=== PATIENT | female | born 1990 | race Caucasian/White ===

== ENCOUNTER 2023-09-29 21:08 | Inpatient (IN) | payer BC, SELFPAY ==
[2023-09-29 17:13] VITALS: BP 145/102
--- NOTE | 2023-09-29 17:57 | ED.GENMED ---
History of Present Illness
General
Chief Complaint: Facial Problem
Source: patient
Exam Limitations: none
Time Seen by Provider: 09/29/23 17:39
Travel History
Have you had any contact with someone who has COVID-19?: No
Do you have any symptoms of coronavirus? Fever > 100 degrees, chills, cough, shortness of breath, sore throat, loss of taste or smell, muscle aches, or headache?: Yes
Symptoms:: fever
History of Present Illness
History of Present Illness:
See MDM
Past History
Past History
ED Past Medical History: None
ED Past Surgical History: None
Social History
Tobacco: Non-smoker
Alcohol: None
Phy Exam
Physical Exam
Physical Exam:
See MDM
Course
Orders/Labs/Results
Orders:
Orders
09/29/23 17:54
CT Neck With Iv Contrast Urgent
Comment:
Reason For Exam: fever, R lateral/anterior neck pain and swelling
0.9% Sodium Chloride 1000 ml [Nss] 1,000 ml IV BOLUS
Acetaminophen [Tylenol] 1,000 mg PO NOW STA
Ketorolac [Toradol] 30 mg IV NOW STA
Morphine Sulfate 4 mg IV NOW STA
09/29/23 18:18
Complete Blood Count/With Diff Urgent
Comprehensive Metabolic Panel Urgent
HCG, Serum Qualitative Screen Urgent
Comment: ADD ON
09/29/23 18:38
Add On- LAB Urgent
Tests Added?: hcg qualitative
09/29/23 20:21
Piperacillin/Tazo 3.375 Gram [Zosyn] 3.375 gram in 50 ml IV NOW
09/29/23 20:30
Blood Culture Q30M
KAROLINE Source: Blood/Venous
Specimen Description:
09/29/23 21:00
Blood Culture Q30M
KAROLINE Source: Blood/Venous
Specimen Description:
Abnormal Lab Results
09/29/23
18:18
Absolute Lymphs (auto) 1.0 L 10^3/uL
(1.2-3.4)
Neutrophils % 78.1 H %
(42.2-75.2)
Lymphocytes % 12.7 L %
(20.5-51.1)
Sodium 134 L mmol/L
(135-145)
09/29/23 18:18
09/29/23 18:18
Vital Signs
Initial and Last Documented VS:
Initial Vital Signs
Temp Pulse Resp BP Pulse Ox
102.1 F H 120 18 145/102 100
09/29/23 17:13 09/29/23 17:13 09/29/23 17:13 09/29/23 17:13 09/29/23 17:13
Last Documented Vital Signs
Temp Pulse Resp BP Pulse Ox
102.7 F H 104 20 145/102 100
09/29/23 18:30 09/29/23 18:30 09/29/23 18:30 09/29/23 17:13 09/29/23 18:30
MDM/Problems Addressed
Differential Diagnosis Includes:
HPI and MDM Narrative:
32-year-old female presenting with persistent fevers and now with right neck pain. She has been on and off antibiotics for sinus infections. She was on a Z-Bob and then amoxicillin x 2 and now she is currently on Bactrim. She spoke to PCP and she
has a lump in her neck and she developed a fever. She was sent in for evaluation
Physical exam
General: Well appearing and non-toxic
HEENT: protecting airway. Right TM erythematous
Neck: Swelling and tenderness to right anterior neck
CV: No evidence of cyanosis
Resp: No accessory muscle use
Abd: Non-distended
Extremities: No deformities
Neuro: alert
Psych: Normal affect
Skin: warm
Problems Addressed including Acute and Chronic Conditions affecting care:
1. Fever and right neck pain
Acuity: acute
Prognosis: stable
Details: Will obtain CT looking for deep space infection
Updates
Case discussed with radiology. No ring-enhancing lesion noted
Differential Diagnosis (but not limited to): Lymphadenitis, otitis media, neck abscess
Testing considered: Blood cultures
Drug therapy (if applicable): OTC meds, please see d/c instruction regarding Rx drugs
Amount and/or Complexity of Data Reviewed
Clinical info obtained from: Patient
External data reviewed: N/A
Labs I independently reviewed (but not limited to): Blood cell count
Radiology: The CT scan was personally and independently reviewed. In addition, official CT report reviewed.
Pulse Ox: not hypoxic
EKG independently reviewed: N/A
Production Machine Shop Supervisor: N/A
Critical Care: N/A
Risk of Complication:
Social Determinants of health: Good social support
Discussed with other providers: Hospitalist, radiologist
Escalation of Care includes Admit/Obs: Given the persistent symptoms and fevers, will admit
Occasional wrong word or 'sound a like' substitutions may have occurred due to the inherent limitations of voice recognition software. Read the chart carefully and recognize, using context, where substitutions have occurred.
*Critical Care Note
Total Time (30-74mins, 75-104mins- exclusive of procedures): Not Applicable
ED Attending Note
-
Portions of this chart may have been created with voice recognition software.� Occasional wrong word or��sound alike� substitutions may have occurred due to the inherent limitations of voice recognition software.
Discharge Plan
Departure
Patient Disposition: Admit
Date of Disposition: 09/29/23
Time of Disposition: 20:27
Admit to: Med/Surg
Presentation/result/management discussed w/ accepting MD/DO: Hospitalist
Discharge Problem:
Acute lymphadenitis
Prescriptions:
No Action
sulfamethoxazole-trimethoprim 800-160 mg Tablet
1 tab PO BID
Patient Comments:
09/29/2023, filled on 09/22/2023 and instructed to take one tablet BID for 10 days.
Advil Allergy Sinus 2-30-200 mg Tablet
1 tab PO DAILYPRN PRN (Reason: allergies)
melatonin 10 mg Tablet
15 mg PO HS PRN (Reason: sleep)
Referrals:
Selene Sheppard MD [Family Provider] -
Interventions
Interventions:
*Risk Screen - Suicide Last Done: 09/29/23 17:13
*General Assessment Last Done: 09/29/23 17:13
*Neglect/Abuse Screening Last Done: 09/29/23 17:13
*ED COVID-19 Vaccine History Last Done: 09/29/23 18:13
ED- Neurological Assessment Last Done: 09/29/23 18:13
ED-Skin Assessment Last Done: 09/29/23 18:13
Discharge Date and Time
Print Language: LUXEMBOURGER
[2023-09-29 18:13] VITALS: BMI 22.7
[2023-09-29] MEDS: TORADOL 30 MG IV (18:24)
[2023-09-29] MEDS: NSS 1000 IV ×2 (18:24→22:12)
[2023-09-29] MEDS: TYLENOL 1000 MG PO (18:24)
[2023-09-29 18:25] LABS: % Basophils 0.4 % (0-2); % Eosinophils 0.5 % (0-6); % Immature Granulocytes 0.1 % (0-0.5); % Lymphocytes 12.7 % (20.5-51.1); % Monocytes 8.2 % (1.7-9.3); % Neutrophils 78.1 % (42.2-75.2); Absolute Monocytes 0.6 10^3/uL (0.1-0.6); Absolute Neutrophils 5.9 10^3/uL (1.4-6.5); Hematocrit 40.1 % (37.0-47.0); Hemoglobin 14.5 g/dL (12.0-16.0); Mean Corp Hgb Conc. 36.2 g/dL (33.0-37.0); Mean Platelet Volume 9.2 fL (7.4-10.4); Nucleated Red Blood Cells % 0 %; Platelet Count 197 10^3/uL (130-400); Red Blood Cell Count 4.83 10^6/uL (4.20-5.40); Red Cell Dist. Width 12.2 % (11.5-14.5); White Blood Cell Count 7.6 10^3/uL (4.8-10.8)
[2023-09-29] MEDS: MORPHINE SULFATE 4 MG IV (18:25)
[2023-09-29 18:44] LABS: ALT (SGPT) 14 U/L (0-35); AST (SGOT) 21 U/L (14-36); Albumin 4.3 g/dl (3.5-5.0); Alkaline Phosphatase 57 U/L (38-126); Blood Urea Nitrogen 10 mg/dl (7-17); Carbon Dioxide 23 mmol/L (22-30); Chloride 102 mmol/L (98-107); Estimated Creatinine Clearance 103 ml/min; Glucose 88 mg/dl (70-99); Sodium 134 mmol/L (135-145); Total Bilirubin 0.6 mg/dl (0.2-1.3); Total Protein 7.6 g/dl (6.3-8.2); eGFR > 60.00
[2023-09-29 19:04] LABS: HCG, Serum Qualitative Screen Negative
[2023-09-29 20:31] VITALS: BP 101/61
[2023-09-29] MEDS: ZOSYN 50 IV (20:32)
--- NOTE | 2023-09-29 21:03 | HPS.HSE ---
Family Physician
-
Family Physician: Selene Sheppard MD
Chief Complaint
-
Sore Throat / Fever
History of Present Illness
Patient is a 32y F with no significant PMH who presents to ED complaining of sore throat and fever. Patient states that she has had symptoms of sinus pressure, headache and sore throat / pain with swallowing off-and-on over the past several
months. She has been seen at Urgent Care and by her PCP and has been treated with multiple courses of amoxicillin and a single course of Medrol dose pack. Each treatment results in only temporary relief.
Most recently, she was placed on Bactrim and is currently on day #7 of that treatment.
Yesterday she noted fullness / swelling externally on the R side of her neck. She again developed pain with swallowing (though no drooling or breathing issues / stridor). She had a fever at home today and presented to the ED for further evaluation.
In the ED, patient has fever to [address] scan shows fluid collection in R tonsillar pillar / retropharyngeal space and cervical lymphadenopathy.
Medical History
Past Medical History
Past Medical History: Reports None
Past Surgical History: Reports Other
Additional Past Surgical History:
T&A
[place] Teeth Extraction
Breast Augmentation
Social History
Tobacco: Non-smoker
Alcohol: Occasional (Rare)
Drug: None
Family History
Family History: Not pertinent
Allergies / Home Medications
Allergies reflects when Allergies were last updated in [facility].
Home Medications with original date entered in [facility]
Allergy/Medication List:
Allergies
Allergy/AdvReac Type Severity Reaction Status Date / Time
No Known Allergies Allergy Verified 09/29/23 17:18
Home Medications
katobxcvkmmpcmzr-hezycuhwewrzdgk-pcbzjwjvm 2 mg-30 mg-200 mg tablet (Advil Allergy Sinus) 1 tab PO DAILYPRN PRN allergies 09/29/23
melatonin 10 mg tablet 15 mg PO HS PRN sleep 09/29/23
sulfamethoxazole 800 mg-trimethoprim 160 mg tablet 1 tab PO BID 09/29/23
Review of Systems
-
History Source: Patient
A 12 point ROS was completed and negative except as noted: Yes
Constitutional: Reports Fever; Denies Chills
EENT: Reports Sore Throat and Other (Sinus Pain); Denies Runny Nose
Respiratory: Denies Cough or Trouble Breathing
Cardiac: Denies Chest Pain or Palpitations
Abdomen/GI: Denies Abdominal Pain, Nausea, Vomiting or Diarrhea
: Denies Dysuria or Frequency
Musculoskeletal: Denies Joint Pain or Edema
Neurological: Reports Headache; Denies Dizzy
Psych: Denies Depression or Anxiety
Physical Exam
Vital Signs
Vital Signs
Temp Pulse Resp BP Pulse Ox
99.1 F 89 18 101/61 98
09/29/23 20:31 09/29/23 20:31 09/29/23 20:31 09/29/23 20:31 09/29/23 20:31
Physical Exam
General: Other (32y F in no acute distress.)
HEENT: Other (R sided cervical adenopathy with mild tenderness. Mild retropharyngeal erythema. No noted edema / discharge.)
Respiratory: Clear; No Wheezes, Rales or Rhonchi
Cardiac: S1/S2 and Regular Rhythm; No Murmur
GI: Soft, Non Tender, Non Distended and Normal Bowel Sounds
Neuro: AO x 3
Laboratory Results
-
09/29/23 18:18
09/29/23 18:18
Laboratory Results
Total Bilirubin 0.6 mg/dl (0.2-1.3) 09/29/23 18:18
AST 21 U/L (14-36) 09/29/23 18:18
ALT 14 U/L (0-35) 09/29/23 18:18
Alkaline Phosphatase 57 U/L (38-126) 09/29/23 18:18
Impression/Plan
-
A/P: Patient is a 32y F with no significant PMH who presents to ED complaining of sore throat, fevers and sinus pressure.
Recurrent / Persistent Sinusitis and Pharyngitis
Retropharyngeal Fluid Collection
Odynophagia secondary to the above
- Admit for further evaluation and treatment.
- IV abx with Zosyn for now.
- Follow-up blood culture results. Repeat Rapid Strep (negative at Urgent Care weeks ago) and check comprehensive throat culture.
- PO Prednisone BID for a few days.
- Supportive care with antipyretics, pain control, IVFs, etc.
- ENT evaluation for additional recommendations.
- Follow for clinical improvement.
DVT Prophylaxis: SCDs
Code Status: Full
[2023-09-29 21:47] VITALS: BP 116/69; BMI 22.6
[2023-09-29] MEDS: MELATONIN 10 MG PO (22:13)
[2023-09-30] MEDS: ZOSYN 50 IV ×4 (02:50→20:20)
--- NOTE | 2023-09-30 03:45 | DOWNTIME ---
There was a [facility] [employer] Client Secondary Spanish Teacher Downtime on 09/30/2023 from 0100 to 09/30/2023 at 0337. Downtime documentation of patient's care, including medication administrations, has been reconciled in the electronic record per guidelines. Refer to the
patient's paper chart under the miscellaneous tab to see printed paper medication records and downtime forms.
[2023-09-30 06:11] LABS: Hematocrit 35.8 % (37.0-47.0); Mean Corp Hgb Conc. 33.5 g/dL (33.0-37.0); Mean Corpuscular Hgb 29.3 pg (27.0-31.0); Mean Corpuscular Volume 87.5 fL (81.0-99.0); Mean Platelet Volume 9.8 fL (7.4-10.4); Platelet Count 156 10^3/uL (130-400); Red Blood Cell Count 4.09 10^6/uL (4.20-5.40); Red Cell Dist. Width 12.4 % (11.5-14.5); White Blood Cell Count 4.8 10^3/uL (4.8-10.8)
[2023-09-30] MEDS: TORADOL 15 MG IV ×2 (06:17→11:43)
[2023-09-30 06:33] LABS: Blood Urea Nitrogen 8 mg/dl (7-17); Calcium 8.3 mg/dl (8.4-10.2); Carbon Dioxide 23 mmol/L (22-30); Chloride 106 mmol/L (98-107); Estimated Creatinine Clearance 90 ml/min; Glucose 82 mg/dl (70-99); Potassium 4.1 mmol/L (3.5-5.1); Sodium 136 mmol/L (135-145); eGFR > 60.00
--- NOTE | 2023-09-30 07:24 | W.PN.HOSP.TC ---
Addendum entered and electronically signed by Maile Ling MD 09/30/23 20:47:
Patient seen and examined independently--agree with plan as set forth by Dr. Vang
GENERAL: well developed, well nourished, female in no apparent distress
HEENT: NC/AT--shoddy LAD along anterior bilateral neck--no pharyngeal erythema
HEART: regular rate and rhythm, +S1, +S2
LUNGS : clear to auscultation bilaterally
ABDOM: soft, nontender, nondistended, + bowel sounds
EXT: no cyanosis, clubbing, or edema
NEUROLOGIC: grossly intact
fever and odynophagia--Likely poorly treated pharyngitis/sinusitis--Rapid strep negative at urgent care few weeks ago--Neck CT reports infiltrative retropharyngeal and right tonsillar pillar fluid collections, no neck abscess--apprec ENT--cont
zosyn, would change to augmentin at d/c if improves--agree with short course prednisone--await cultures--Follow ENT outpatient
DVT Prophylaxis: SCDs
Code Status: Full
anticipate d/c in 24 hours
Original Note:
Today's Communication/Plan
-
Odynophagia resolved
Pain control
Continue Zosyn
Transition to Augmentin if improvement in next 24 hours.
Follow ENT outpatient on discharge.
Assessment / Plan
Assessment / Plan
ASSESSMENT: 32-year-old female with past medical history of tonsillectomy who presented to the ED with sore throat, fever and right neck pain. Patient reports neck lump, sinus pressure, headaches and pain with swallowing for the past several
months. Received multiple courses antibiotics including Z-Bob, then amoxicillin twice and currently on Bactrim day 7. Notes right neck lump with worsening odynophagia but no drooling or stridor. Patient's fever worsened yesterday (102) which
prompted patient's presentation to the ED. CT scan done in the ED showed fluid collection in the right tonsillar and retropharyngeal space with cervical lymphadenopathy.
Impression/Plan:
Presentation with fever and odynophagia
-Fever resolved, minimal right lymphadenopathy.
-Likely poorly treated pharyngitis/sinusitis.
-Rapid strep negative at urgent care few weeks ago.
-Neck CT reports infiltrative retropharyngeal and right tonsillar pillar fluid collections, no neck abscess.
-Zosyn started, will continue for multi. If patient improves will discharge on 875 mg Augmentin twice daily for 12 days to be taken with a probiotic and/or food.
-P.o. 20 mg prednisone BID for 2 to 3 days
-Chronic otitis media, neck abscess, lymphadenitis
-Blood cultures.
-IVF.
-Pain control as needed
-Pain control
-Throat culture.
-Follow ENT outpatient
DVT Prophylaxis: SCDs
Code Status: Full
Anticipated Discharge: Within 24 hours
Subjective/Interval History
-
Date of Service: September 30, 2023
Objective Data
-
Labs:
Laboratory Results
09/30/23
05:34
WBC 4.8
Hgb 12.0
Hct 35.8 L
Plt Count 156 D
Sodium 136
Potassium 4.1
Chloride 106
Carbon Dioxide 23
BUN 8
Creatinine 0.8
Glucose 82
Calcium 8.3 L
Vital Signs:
Vital Signs
Temp Pulse Resp BP Pulse Ox
97.7 F 78 16 116/69 98
09/29/23 21:47 09/29/23 21:47 09/29/23 21:47 09/29/23 21:47 09/29/23 22:00
I&O
09/29/23 09/30/23 10/01/23
06:59 06:59 06:59
Intake Total 1090 / 1090
Balance 1090 / 1090
Review of Systems
-
History Source: Patient
All other systems: Not reviewed unless documented
Constitutional: Reports No Symptoms; Denies Fever
EENT: Reports No Symptoms Reported and Sore Throat; Denies Tinnitis or Hearing Loss
Respiratory: Reports No Symptoms; Denies Cough, Trouble Breathing or Wheezing
Cardiac: Reports No Symptoms; Denies Chest Pain or Palpitations
Abdomen/GI: Reports No Symptoms; Denies Abdominal Pain, Nausea, Vomiting or Diarrhea
Musculoskeletal: Reports No Symptoms
Endocrine: Reports No Symptoms
Physical Exam
-
General: Well Developed, No Apparent Distress and Comfortable
HEENT: Normocephalic, Atraumatic and Moist Mucous Membranes; Negative Thrush
Respiratory: Clear to Auscultation and Non Labored Respirations; Negative Wheezes, Rhonchi or Crackles
Cardiac: Regular Rhythm and S1/S2; Negative Murmur, Rub or Gallop
GI: Soft, Nontender, Nondistended and Normal Bowel Sounds; Negative Organomegaly
Rectal: Deferred by Provider
Musculoskeletal: No Clubbing, No Cyanosis and No Edema
Skin: Warm; Negative Rash
Neuro: Awake, Alert, Oriented, AO x 3, No Motor Deficits and Nonfocal/Grossly Intact
Psych: Calm and Intact Judgement/Insight
Data Reviewed
-
CT Scan: Report Reviewed by me and Discussed with Physician
Labs: Labs Reviewed by me and Discussed with Physician
Old Records: Reviewed
--- NOTE | 2023-09-30 07:36 | CON.MD ---
Consultation - Medical
-
32 yo w sev week Hx of ALLEN, sinus pressure, treated c Amox and Medrol, most recently on Bactrim, presented with sore throat and fever
T - [address] reviewed shows some retropharyngeal fluid but no abscess or mass
Presently afebrile
Pt has hx tonsillectomy
Sinuses and mastoids clear on CT
PE - Pt in no distress
Mild trismus
Some erythema post pharyngeal wall
Neck - sl tender, no masses
TM's clear
Flex endo - no sinusitis, dev septum to left
Mild erythema pharyngeal wall, no bulging,no mass
Larynx - normal
A/P Retropharyngeal cellulitis
Unclear initial source but usually spreads from upper pharyngeal infection
No abscess
Continue present IV antibx ( has anaerobic coverage) , few doses of steroid ok (3 or 4 only)
Can attempt po
If continues to improve, could transition to po antibx in a day or 2, possibly Clindamycin 300 TID
follow up ENT as outpt
[2023-09-30 07:48] VITALS: BP 107/71
[2023-09-30] MEDS: NSS 1000 IV ×2 (08:03→18:20)
--- NOTE | 2023-09-30 08:10 | PTCARENOTE ---
patient reports pain on right side of neck 2/10 and denies need for analgesia, +erythema in posterior pharyngeal was, right side of neck tender,slight swelling. eager to try regular food, independent with ambulation to BR, vss, will continue to
monitor.
--- NOTE | 2023-09-30 09:59 | CM ---
Patient seen at bedside. Patient states that she lives in an apartment on a second floor with a store on the first floor. Patient has approx 14 steps to her home. Patient has no DME and her PCP is Dr. Sheppard. Patient uses the [facility] in [place].
Patient plan is for discharage home with no needs. CM will continue to follow for discharge planning needs.
Plan; home with no needs vs home with VN
[2023-09-30] MEDS: DELTASONE 20 MG PO ×2 (11:38→20:20)
--- NOTE | 2023-09-30 12:23 | PTCARENOTE ---
After RN Toradol administered for / headache, pain improved to 2/10 (see MAR), will continue to monitor.
[2023-09-30 15:16] VITALS: BP 100/61
[2023-09-30] MEDS: MELATONIN 5 MG PO (22:03)
[2023-09-30] MEDS: MELATONIN 10 MG PO (22:03)
[2023-09-30 23:00] VITALS: BP 94/63
[2023-10-01] MEDS: ZOSYN 50 IV ×2 (02:26→08:11)
[2023-10-01] MEDS: NSS 1000 IV (05:00)
[2023-10-01 07:00] VITALS: BP 110/71
[2023-10-01] MEDS: DELTASONE 20 MG PO (08:11)
--- NOTE | 2023-10-01 08:12 | W.PN.HOSP.TC ---
Addendum entered and electronically signed by Maile Ling MD 10/01/23 15:08:
Patient seen and examined independently--agree with plan as set forth by Dr. Vang
GENERAL: well developed, well nourished, female in no apparent distress
HEENT: NC/AT--shoddy LAD along anterior bilateral neck, much improved
HEART: regular rate and rhythm, +S1, +S2
LUNGS : clear to auscultation bilaterally
ABDOM: soft, nontender, nondistended, + bowel sounds
EXT: no cyanosis, clubbing, or edema
NEUROLOGIC: grossly intact
fever and odynophagia--Likely poorly treated pharyngitis/sinusitis--Rapid strep negative at urgent care few weeks ago--Neck CT reports infiltrative retropharyngeal and right tonsillar pillar fluid collections, no neck abscess--apprec ENT-- zosyn to
augmentin at d/c --agree with short course prednisone--cultures negative--Follow ENT outpatient
DVT Prophylaxis: SCDs
Code Status: Full
agree with d/c
anticipate d/c in 24 hours
Original Note:
Today's Communication/Plan
-
Discontinue Zosyn
Discharge Augmentin prednisone
Assessment / Plan
Assessment / Plan
ASSESSMENT: 32-year-old female with past medical history of tonsillectomy who presented to the ED with sore throat, fever and right neck pain. Patient reports neck lump, sinus pressure, headaches and pain with swallowing for the past several
months. Received multiple courses antibiotics including Z-Bob, then amoxicillin twice and currently on Bactrim day 7. Notes right neck lump with worsening odynophagia but no drooling or stridor. Patient's fever worsened yesterday (102) which
prompted patient's presentation to the ED. CT scan done in the ED showed fluid collection in the right tonsillar and retropharyngeal space with cervical lymphadenopathy.
Impression/Plan:
Presentation with fever and odynophagia
-Fever resolved, minimal right lymphadenopathy.
-Likely poorly treated pharyngitis/sinusitis.
-Rapid strep negative, throat culture no growth in 24 hours.
-Blood culture pending, no growth in 24 hours.
-Neck CT reports infiltrative retropharyngeal and right tonsillar pillar fluid collections, no neck abscess.
-ENT recs appreciated.
-Stop Zosyn, patient will be discharged on 875 mg Augmentin twice daily for 10 days (take with probiotic and/or with food), and 20 mg prednisone BID for extra 2 days.
-Pain control as needed.
-Follow ENT outpatient
DVT Prophylaxis: SCDs
Code Status: Full
Anticipated Discharge: Today
Subjective/Interval History
-
Date of Service: October 01, 2023
Objective Data
-
Vital Signs:
Vital Signs
Temp Pulse Resp BP Pulse Ox
98.1 F 68 16 110/71 98
10/01/23 07:00 10/01/23 07:00 10/01/23 07:00 10/01/23 07:00 10/01/23 07:00
I&O
09/30/23 10/01/23 10/02/23
06:59 06:59 06:59
Intake Total 1090 / 1090 2332 / 2332
Balance 1090 / 1090 2332 / 2332
Review of Systems
-
History Source: Patient
All other systems: Not reviewed unless documented
Constitutional: Reports No Symptoms; Denies Fever
EENT: Reports No Symptoms Reported, Sore Throat and Other (Mild right cervical lymphadenopathy); Denies Tinnitis or Hearing Loss
Respiratory: Reports No Symptoms; Denies Cough, Trouble Breathing or Wheezing
Cardiac: Reports No Symptoms; Denies Chest Pain or Palpitations
Abdomen/GI: Reports No Symptoms; Denies Abdominal Pain, Nausea, Vomiting or Diarrhea
Genitourinary: Reports No Symptoms
Musculoskeletal: Reports No Symptoms
Skin: Reports No Symptoms
Endocrine: Reports No Symptoms
Allergy / Immunology: Reports No Symptoms
Physical Exam
-
General: Well Developed, No Apparent Distress and Comfortable
HEENT: Normocephalic, Atraumatic and Moist Mucous Membranes; Negative Thrush
Respiratory: Clear to Auscultation and Non Labored Respirations; Negative Wheezes, Rhonchi or Crackles
Cardiac: Regular Rhythm and S1/S2; Negative Murmur, Rub or Gallop
GI: Soft, Nontender, Nondistended and Normal Bowel Sounds; Negative Organomegaly
Rectal: Deferred by Provider
Musculoskeletal: No Clubbing, No Cyanosis and No Edema
Skin: Warm; Negative Rash
Neuro: Awake, Alert, Oriented, AO x 3, No Motor Deficits and Nonfocal/Grossly Intact
Psych: Calm and Intact Judgement/Insight
Data Reviewed
-
CT Scan: Report Reviewed by me and Discussed with Physician
Labs: Labs Reviewed by me and Discussed with Physician
Old Records: Reviewed
--- NOTE | 2023-10-01 08:13 | W.DCSUMMARY ---
Addendum entered and electronically signed by Maile Ling MD 10/01/23 15:44:
Read fully and agree with discharge as set forth by Dr. Vang
Nothing further to add.
Original Note:
Discharge Summary
Discharge Data
Date of Admission: 09/29/23
Date of Discharge: 10/01/23
-
Pending Results: Yes
Additional Pending Results:
Blood cultures
Hospital Course
Discharging Physician : Dr. Maile Ling MD, Dr. Marcelino Vang MD
Disposition : Home
Primary care physician : Selene Sheppard MD
Principal Discharge diagnosis : Retropharyngeal cellulitis, poorly treated pharyngitis, Odynophagia
Hospital Course : Patient is a 32-year-old female with past medical history of tonsillectomy who presented to the hospital with sore throat, fever and right neck pain. Patient reported that she has had several months of pain with swallowing,
headache and sinus pressure with a neck lump. She was treated with Z-Bob and amoxicillin twice and was currently on as day 7 of Bactrim at presentation. She denied odynophagia, drooling, facial pain, ear pain, urinary symptoms, chest pain,
abdominal pain or palpitations.
During the course of patient's admission, patient was seen in consultation with ENT. Her neck CT reported infiltrative retropharyngeal and right tonsillar fluid collection but no abscess. She was started on Zosyn and oral steroid for inflammation.
Patient improved over 24 hours and was transitioned to oral antibiotics (Augmentin for additional 10 days) and 2 days of additional steroids. Patient was instructed to follow-up with ENT outpatient and her primary care physician.
Important imaging findings : Infiltrative retropharyngeal and right tonsillar pillar fluid collections as described above. Infected fluid cannot be excluded.
Discharge Plan
-
Patient Disposition: Home (Routine Discharge)
Discharge Diagnosis/Procedures: Retropharyngeal cellulitis, poorly treated pharyngitis, Odynophagia
Condition: Fair
Diet: No restrictions
Activity: No restrictions
Driving Restrictions: As prior to admission
Bathing Restrictions: None
Referrals:
Selene Sheppard MD [Family Provider] - in less than 1 week
Bib Jean MD [Active] - in less than 1 week
Additional Discharge Medication Instructions: Take Amoxicillin/Clavulanate one tablet twice daily for the next 10 days.
Take Prednisone one tab daily for the next two days.
Prescriptions:
New
prednisone 20 mg Tablet
20 mg PO DAILY Qty: 2 0RF
amoxicillin-pot clavulanate 875-125 mg tablet
1 tab PO BID Qty: 20 0RF
Continued
Advil Allergy Sinus 2-30-200 mg Tablet
1 tab PO DAILYPRN PRN (Reason: allergies)
melatonin 10 mg Tablet
15 mg PO HS PRN (Reason: sleep)
Discontinued
sulfamethoxazole-trimethoprim 800-160 mg Tablet
1 tab PO BID
Patient Comments:
09/29/2023, filled on 09/22/2023 and instructed to take one tablet BID for 10 days.
Discharge Orders:
Discharge Patient (As Directed); Ordered 10/01/23
Ordered By: Marcelino Vang
Discharge Date and Time
Discharge Date/Time: 10/01/23 12:39
Print Language: KYRGYZ
[2023-10-01 08:42] LABS: Hematocrit 38.1 % (37.0-47.0); Hemoglobin 12.9 g/dL (12.0-16.0); Mean Corp Hgb Conc. 33.9 g/dL (33.0-37.0); Mean Corpuscular Hgb 29.9 pg (27.0-31.0); Mean Corpuscular Volume 88.2 fL (81.0-99.0); Mean Platelet Volume 9.7 fL (7.4-10.4); Platelet Count 171 10^3/uL (130-400); Red Blood Cell Count 4.32 10^6/uL (4.20-5.40); Red Cell Dist. Width 12.3 % (11.5-14.5); White Blood Cell Count 8.2 10^3/uL (4.8-10.8)
[2023-10-01 09:07] LABS: Blood Urea Nitrogen 7 mg/dl (7-17); Calcium 8.8 mg/dl (8.4-10.2); Carbon Dioxide 22 mmol/L (22-30); Chloride 109 mmol/L (98-107); Estimated Creatinine Clearance 120 ml/min; Glucose 110 mg/dl (70-99); Potassium 3.9 mmol/L (3.5-5.1); Sodium 141 mmol/L (135-145); eGFR > 60.00
--- NOTE | 2023-10-01 13:52 | CM ---
Patient seen at bedside with physician and residents. Patient for discharge home with patient driving. Patient with no needs for VN. CM will continue to follow for discharge planning needs.
Plan; home with no needs
== END 2023-10-01 12:39 | disposition home or self-care (01) | DRG 815 ==
LOC: 3 WEST ACU 21:08
PROVIDERS: Student in an Organized Health Care Education/Training Program; ADMITTING PHYSICIAN Hospitalist; ATTENDING PHYSICIAN Internal Medicine; CONSULT PHYSICIAN Otolaryngology; EMERGENCY PHYSICIAN Student in an Organized Health Care Education/Training Program; FAMILY PHYSICIAN Emergency Medicine
DX: L04.9 Acute lymphadenitis, unspecified (principal); J39.1 Other abscess of pharynx
CPT/HCPCS: 70491; 80048; 80053; 84703; 85025; 85027; 87040; 87070; 87880; 96365; 96375; 99285; Q9967

== ENCOUNTER 2024-01-14 09:40 | Emergency (ER) | payer BC, SELFPAY ==
[2024-01-14 09:43] VITALS: BP 156/100
--- NOTE | 2024-01-14 10:00 | ED.GENMED ---
History of Present Illness
General
Chief Complaint: Throat Problem
Source: patient
Exam Limitations: none
Time Seen by Provider: 01/14/24 09:51
Nursing documentation reviewed up to this point in time: agreed with
History of Present Illness
History of Present Illness:
33 y/o F with h/o previous lymphadenitis in september requiring IV abx
here with sore throat x 2 days, fever, bodyaches and now with L lymph node swelling
the swlelign is much less than previous which was R sided with her infection injune
she had been on abx x 2 and failed requiring IV abx
she doedsn't want this to get to that point
saw a practitioner in the PCP office who sent her here
she has had some painful swallowing but no inability to open mouth, no voice change, no rash, no trouble breathing
she has no nasal congestion/cough
s/p tonsillectomy in the past
Past History
Past History
ED Past Medical History: None
ED Past Surgical History: None
Social History
Tobacco: Non-smoker
Alcohol: None
Review of Systems
Review of Systems
Allergies reviewed?: Yes
Phy Exam
Physical Exam
Physical Exam:
GENERAL: Alert , in no apparent distress
EYE: pupils equal and reactive
NECK: Supple, small minimally tender L tonsillar DARYL; no other DARYL
moving neck normally
normal swallowing
ENT: b/l TM s clear, pharynx mild erythematous uvula midline, no edema
few palatal petechiae; 1 small area that appears like apthous ulcer
no trismus
CARDIAC: tachycardia, no edema
LUNGS: Clear breath sounds bilaterally, no acute respiratory distress, no wheezes/rales/rhonchi, occ cough
ABDOMEN: Soft, without focal tenderness, no r/g, no cvat, normal bowel sounds
NEUROLOGICAL: Alert and oriented, no focal neuro deficits
SKIN: Warm and dry, skin intact.
MUSCULOSKELETAL: No edema, well perfused.
PSYCH: Normal and appropriate interaction.
Course
Orders/Labs/Results
Orders:
Orders
01/14/24 09:58
Ketorolac [Toradol] 30 mg IV NOW STA
01/14/24 09:59
0.9% Sodium Chloride 1000 ml [Nss] 1,000 ml IV BOLUS
01/14/24 10:49
Complete Blood Count/With Diff Urgent
Comprehensive Metabolic Panel Urgent
01/14/24 10:50
Influenza A+B Rapid Molecular Urgent
KAROLINE Source: Nasal Swab
Specimen Description:
01/14/24 10:52
COVID-19 Antigen Urgent
Source: Nasal Swab
Monotest Urgent
Rapid Strep Group A Urgent
KAROLINE Source: Throat/Pharynx
Specimen Description:
Date Specimen was Collected: 01/14/24
Time Specimen was Collected: 10:30
01/14/24 12:37
Acetaminophen [Tylenol] 1,000 mg PO NOW STA
Dexamethasone Sod Phosphate [Decadron] 10 mg IV NOW STA
Abnormal Lab Results
01/14/24
10:49
Absolute Neuts (auto) 8.5 H 10^3/uL
(1.4-6.5)
Absolute Lymphs (auto) 0.8 L 10^3/uL
(1.2-3.4)
Neutrophils % 85.1 H %
(42.2-75.2)
Lymphocytes % 8.1 L %
(20.5-51.1)
01/14/24 10:49
01/14/24 10:49
Vital Signs
Temp: 99.0 F
Initial and Last Documented VS:
Initial Vital Signs
Temp Pulse Resp BP Pulse Ox
100.4 F H 121 16 156/100 100
01/14/24 09:43 01/14/24 09:43 01/14/24 09:43 01/14/24 09:43 01/14/24 09:43
Last Documented Vital Signs
Temp Pulse Resp BP Pulse Ox
99.0 F 94 16 111/79 99
01/14/24 12:14 01/14/24 12:30 01/14/24 12:30 01/14/24 12:30 01/14/24 12:30
MDM/Problems Addressed
Differential Diagnosis Includes:
pharyngitis, mono, lymphadenitis, flu, covid, [employer]
MDM/Problems Addressed:
33 y/o F
previous lymphadenitis requiring IV abx
here with sore throat, fever, small gland swelling
no rash, trouble swallowing/rouble sepaking, droolign
able to move neck normlaly
well appearing
low grade temp on arrival
mild pharyngeal erythema and some palatal petechiae
small apthous ulceration
appears viral pharyngitis
no sublingla sewlling/ludwigd
very minimal swelling to L lymph node
moving neck normally
givne iv fliuds, toradol
fever resolved
pain improved
wbc normal but with left shift
flu, covid, strep mono neg
consider empiric abx but centor criteria 3/4
suspect viral
throat cultlure sent
augmentin rx to hold if worsening DARYL or pain;
[facility]
*Critical Care Note
Total Time (30-74mins, 75-104mins- exclusive of procedures): Not Applicable
ED Attending Note
-
Portions of this chart may have been created with voice recognition software.� Occasional wrong word or��sound alike� substitutions may have occurred due to the inherent limitations of voice recognition software.
Discharge Plan
Departure
Patient Disposition: Home (Routine Discharge)
Date of Disposition: 01/14/24
Time of Disposition: 12:31
Patient with high blood pressure during this ER visit?: No
Condition: Fair
Discharge Problem:
Pharyngitis, Swelling of lymph node
Instructions: Viral Pharyngitis, Sore Throat, Adult ED
Prescriptions:
New
amoxicillin-pot clavulanate 875-125 mg tablet
1 tab PO BID Qty: 20 0RF
No Action
Advil Allergy Sinus 2-30-200 mg Tablet
1 tab PO DAILYPRN PRN (Reason: allergies)
melatonin 10 mg Tablet
15 mg PO HS PRN (Reason: sleep)
prednisone 20 mg Tablet
20 mg PO DAILY Qty: 2 0RF
amoxicillin-pot clavulanate 875-125 mg tablet
1 tab PO BID Qty: 20 0RF
Referrals:
Selene Sheppard MD [Family Provider] -
Stand Alone Forms: Return to Work
Activity Restrictions/Additional Instructions:
Your lymph node swelling is likely from a viral throat infection. You were given a dose of steroids in the ER to help with the pain and swelling. You did have a fever. You also had negative strep, flu, COVID testing, mono testing. Because of
your history of lymph node infection previously it is important to watch this make sure is not getting worse. If the swelling is increasing but you feel like you are still able to open your mouth when you are not having trouble swallowing you can
try starting the Augmentin twice a day. Generally speaking lymph node infections are largely viral and antibiotics do not help. However with worsening swelling just in 1 particular spot and a fever it would be reasonable to start an antibiotic.
You should return to the ER for any trouble breathing, increasing trouble opening her mouth, rash, high fever not responding to Tylenol, voice change etc.
Otherwise see your doctor next week.
Interventions
Interventions:
*Risk Screen - Suicide Last Done: 01/14/24 09:43
*General Assessment Last Done: 01/14/24 11:13
*Neglect/Abuse Screening Last Done: 01/14/24 09:43
ED- Fall Risk Assessment Last Done: 01/14/24 11:13
*ED COVID-19 Vaccine History Last Done: 01/14/24 11:13
ED-EENT Assessment Last Done: 01/14/24 11:13
ED- Pulmonary Assessment Last Done: 01/14/24 11:13
Discharge Date and Time
Print Language: PORTUGUESE
[2024-01-14] MEDS: TORADOL 30 MG IV (10:57)
[2024-01-14] MEDS: NSS 1000 IV (10:58)
[2024-01-14 11:07] LABS: % Basophils 0.3 % (0-2); % Eosinophils 0.3 % (0-6); % Immature Granulocytes 0.3 % (0-0.5); % Lymphocytes 8.1 % (20.5-51.1); % Monocytes 5.9 % (1.7-9.3); % Neutrophils 85.1 % (42.2-75.2); Absolute Lymphocytes 0.8 10^3/uL (1.2-3.4); Absolute Monocytes 0.6 10^3/uL (0.1-0.6); Absolute Neutrophils 8.5 10^3/uL (1.4-6.5); Hematocrit 39.5 % (37.0-47.0); Hemoglobin 14.1 g/dL (12.0-16.0); Mean Corp Hgb Conc. 35.7 g/dL (33.0-37.0); Mean Corpuscular Hgb 30.7 pg (27.0-31.0); Mean Corpuscular Volume 85.9 fL (81.0-99.0); Mean Platelet Volume 9.9 fL (7.4-10.4); Nucleated Red Blood Cells % 0 %; Platelet Count 174 10^3/uL (130-400)
[2024-01-14 11:08] VITALS: BP 117/88
[2024-01-14 11:20] LABS: COVID-19 Antigen Negative (Negative)
[2024-01-14 11:22] LABS: ALT (SGPT) 11 U/L (0-35); AST (SGOT) 17 U/L (14-36); Alkaline Phosphatase 55 U/L (38-126); Blood Urea Nitrogen 8 mg/dl (7-17); Calcium 8.8 mg/dl (8.4-10.2); Carbon Dioxide 23 mmol/L (22-30); Chloride 103 mmol/L (98-107); Glucose 96 mg/dl (70-99); Potassium 4.1 mmol/L (3.5-5.1); Sodium 138 mmol/L (135-145); Total Bilirubin 0.4 mg/dl (0.2-1.3); Total Protein 6.8 g/dl (6.3-8.2); eGFR > 60.00
[2024-01-14 11:50] LABS: Monotest Negative (Negative)
[2024-01-14 12:26] VITALS: BMI 23.8
[2024-01-14 12:27] VITALS: BP 111/79
[2024-01-14 12:30] VITALS: BP 111/79
[2024-01-14 13:00] VITALS: BP 108/78
[2024-01-14] MEDS: TYLENOL 1000 MG PO (13:07)
[2024-01-14] MEDS: DECADRON 10 MG IV (13:08)
== END 2024-01-14 13:42 | disposition home or self-care (01) ==
LOC: EMR 09:40
PROVIDERS: Physician Assistant; EMERGENCY PHYSICIAN Emergency Medicine; FAMILY PHYSICIAN Emergency Medicine
DX: J02.9 Acute pharyngitis, unspecified (principal); R59.9 Enlarged lymph nodes, unspecified
CPT/HCPCS: 99283; 96374; 96375; 96361; 80053; 85025; 86308; 87070; 87147; 87502; 87811; 87880